=== PATIENT | male | born 1965 | race Caucasian/White ===

== ENCOUNTER 2019-04-30 21:19 | Emergency (ER) | payer MEDICAID ==
[~2019-04-30] VITALS: Ht 170.2 cm; Wt 61.7 kg
[2019-04-30 21:30] VITALS: BP 110/79
[2019-04-30] MEDS ORDERED: DIPH,PERTUSS(ACELL),TET VAC/PF 0.5 ML IM-VACC ONE ×2 (22:20→22:30)
[2019-04-30] MEDS ORDERED: LIDOCAINE 1%-EPI 1:100K, 20ML ONE (22:20)
[2019-04-30] MEDS ORDERED: LIDOCAINE 1%-EPI 1:100K, 20ML SQ ONE (22:30)
== END 2019-05-01 00:03 | disposition home or self-care (01) ==
LOC: ED 23:40
DX: S01.81XA Laceration without foreign body of other part of head, initial encounter (principal); Z21 Asymptomatic human immunodeficiency virus [HIV] infection status; W01.0XXA Fall on same level from slipping, tripping and stumbling without subsequent striking against object, initial encounter; Y93.89 Activity, other specified; Y92.009 Unspecified place in unspecified non-institutional (private) residence as the place of occurrence of the external cause; Y99.8 Other external cause status
CPT/HCPCS: 12051; 99284

== ENCOUNTER 2019-05-10 10:53 | Emergency (ER) | payer MEDICAID ==
[~2019-05-10] VITALS: Ht 170.2 cm; Wt 63.4 kg
[2019-05-10 11:09] VITALS: BP 128/76
--- NOTE | 2019-05-10 14:44 | NUR ---
FUNDS TRANSFER CLERK: CALLED FOR ROOM, NO ANSWER
--- NOTE | 2019-05-10 14:59 | NUR ---
SUP RN: NA X 2
--- NOTE | 2019-05-10 15:10 | NUR ---
FIELD CONTACT PERSON: CALLED FOR ROOM AND LAB, NO ANSWER
--- NOTE | 2019-05-10 16:02 | NUR ---
MANAGER EQUIPMENT: AWARE, PT POSITIVE PNEUMONIA VIA CXR. PT HAS GEN DELIVERY ADDRESS, NO PHONE NUMBER.
== END 2019-05-10 16:03 | disposition left against medical advice (07) ==
LOC: ED 15:55
DX: R05 Cough (principal); Z20.828 Contact with and (suspected) exposure to other viral communicable diseases; S01.411D Laceration without foreign body of right cheek and temporomandibular area, subsequent encounter; X58.XXXD Exposure to other specified factors, subsequent encounter
CPT/HCPCS: 71046; 99283